=== PATIENT | male | born 1950 | race Caucasian/White ===

== ENCOUNTER → 2017-06-27 | Day surgery (SDC) | payer MEDICARE ==
[~2017-06-27] VITALS: Ht 172.7 cm; Wt 108.9 kg
[~2017-06-27] MED LIST: 0.9% Sodium Chloride 1,000 ML IV PRN; AMLO5TAB2 PO; ASPI-973 PO; AZTH50T PO; CALC-72 PO; CARV25TA2 PO; FERR236T PO; GLUC-123 PO; MULT1CAP33 PO; OMEP20CA11 PO; Sodium Chloride LOK Flush 10 mL Syringe IV PRN; TAMS0.4C98 PO; fentaNYL-PF 50 mCg/mL 2 mL Inj IVPUSH PRN
[2017-06-27 08:10] VITALS: BP 123/86; PULSE 76; RESP 16; O2SAT 94
[2017-06-27 08:56] VITALS: BP 95/62; PULSE 73; RESP 16; O2SAT 94
[2017-06-27 09:06] VITALS: BP 95/50; PULSE 71; O2SAT 93
[2017-06-27 09:13] VITALS: BP 118/68; PULSE 78; O2SAT 95
--- NOTE | 2017-06-27 09:49 | ENDO ---
[address] [address] ENDOSCOPY PROCEDURE PATIENT: ROSI COPELAND : 1950 MR#: [id number] ADMIT: 06/27/2017 JOB ID: [id number] DATE: 06/27/2017 PROCEDURE: Colonoscopy. INDICATION: Patient with a history of Crohn disease. The patient's ASA classification is 2. Mallampati score is 2. MEDICATIONS: 1. Versed 4 mg. 2. Fentanyl 150 mcg. INSTRUMENTS USED: PCF H 180 AL as well as a GIF 160. PROCEDURE DETAILS: After informed consent was obtained, the patient was brought into the GI suite, where he was placed on oxygen via nasal cannula and monitored with continuous pulse oximeter, telemetry and blood pressure monitoring. A time-out was performed. Then, he was placed in the left lateral decubitus position and medications were administered for sedation. Using my index finger, I attempted to do a rectal examination. However, I encountered an anal stricture and, therefore, was unable to pass my index finger. However, using my index finger, I was able to perform a digital examination and a stricture at the anus was appreciated. Next, I attempted to insert a pediatric colonoscope, but was unable secondary to patient intolerance. At this point, the pediatric colonoscope was changed out for a standard upper scope. We were able to insert the upper scope in through the anus with minimal resistance and we advanced the scope to the mid transverse colon. I was unable to advance the scope beyond the mid transverse colon. The upper endoscope was then withdrawn back to the rectum as the mucosa and lumen were examined. In the rectum, retroflexion was performed. Following retroflexion, remaining air in the rectum was suctioned, and procedure was completed. FINDINGS: 1. Anal stricture. 2. Otherwise normal mucosa from rectum to mid transverse colon. Multiple random biopsies were obtained throughout the transverse colon and extending distally into the rectum. IMPRESSION: 1. Anal stricture, otherwise normal examination. 2. Incomplete examination. 3. Otherwise examined mucosa from transverse colon to the rectum was normal. RECOMMENDATIONS: 1. Await biopsy results. 2. Referral to Colorectal Surgery for consideration for possible anal stricture dilation. COMPLICATIONS: None. ESTIMATED BLOOD LOSS: Less than 5 mL. MTDD
--- NOTE | 2017-07-02 08:26 | PATH ---
SURGICAL PATHOLOGY Attending Physician:Jose Sellers CASE STATUS: Signed Out PATIENT NAME: ROSI COPELAND PID: [id number] : 1950 DATE COLLECTED:06/27/2017 19:15 SPECIMEN: 1: Colon, Biopsy 2: Colon, Biopsy 3: Rectum, Biopsy CLINICAL HISTORY: 1). TRANSVERSE COLON BIOPSY 2). DESCENDING COLON BIOPSY 3). RECTAL BIOPSY FINAL DIAGNOSIS: 1. Transverse Colon, Biopsy: Superficial portions of colorectal mucosa with occasional lymphoid aggregates and no diagnostic abnormality. Negative for active inflammation, granulomas, dysplasia, and malignancy. Negative for microscopic colitis. 2. Descending Colon, Biopsy: Superficial portions of colorectal mucosa with mild, patchy hyperplastic mucosal change and otherwise no diagnostic abnormality. Negative for active inflammation, granulomas, dysplasia, and malignancy. 3. Rectal Biopsy: Superficial portions of colorectal mucosa with no diagnostic abnormality. Negative for active inflammation, granulomas, dysplasia, and malignancy. ICD10: K52.9 GROSS DESCRIPTION: The specimen is received in three formalin filled containers labeled with the patient's name. 1). The specimen is labeled "transverse colon and "and consists of 4 portions of tissue which aggregate to 0.3 x 0.3 x 0.3 CM. The specimen is entirely submitted in cassette 1A. 2). The specimen is labeled "descending colon" and consists of 4 portions of tissue which aggregate to 0.4 x 0.3 x 0.2 CM. The specimen is entirely submitted in cassette 2A. 3). The specimen is labeled "rectal" and consists of 3 portions of tissue which aggregate to 0.3 x 0.2 x 0.2 CM. The specimen is entirely submitted in cassette 3A. 06/27/2017DC ICD-9 CODES: CPT CODES: 1: 01997 2: 94452 3: 11215 Electronically Signed Out Paige Mathew MD [facility], [place] [address] Technical component performed at [facility], [facility] [address], [address]
== END | disposition home or self-care (01) ==
LOC: END 00:39
PROVIDERS: ATTEND Internal Medicine Gastroenterology
DX: K50.90 Crohn's disease, unspecified, without complications (principal); K62.4 Stenosis of anus and rectum; K52.9 Noninfective gastroenteritis and colitis, unspecified; I10 Essential (primary) hypertension; C61 Malignant neoplasm of prostate; E55.9 Vitamin D deficiency, unspecified; Z87.891 Personal history of nicotine dependence; Z79.82 Long term (current) use of aspirin
CPT/HCPCS: 45380; G0500; J2250; J3010; J7030